=== PATIENT | female | born 1980 | race Caucasian/White ===

== ENCOUNTER 2016-08-24 08:30 | Outpatient (CLI) | END 2016-08-24 08:31 | disposition home or self-care (01) | LOC: LAB 08:30 | PROVIDERS: ATTEND Internal Medicine | DX: E03.9 Hypothyroidism, unspecified (principal); R53.83 Other fatigue; R73.9 Hyperglycemia, unspecified; R63.5 Abnormal weight gain | CPT/HCPCS: 36415; 83036; 84439; 84443; 86376 ==

== ENCOUNTER 2017-11-13 09:01 | Outpatient (CLI) ==
--- NOTE | 2017-11-13 11:19 | US ---
EXAM: Thyroid ultrasound HISTORY: Multinodular goiter. COMPARISON: Ultrasound 05/07/2016 TECHNIQUE: Sonographic evaluation of the thyroid was performed with limited doppler. FINDINGS: The right thyroid measures 4.6 x 1.5 x 1.6 cm. This is heterogeneous with normal color Doppler flow. There is a complex nodule in the superior pole measuring 0.7 x 0.7 x 0.4 cm. The the isthmus measures 0.3 cm in thickness. The left thyroid measures 3.9 x 1.1 x 1.3 cm. This is heterogeneous echogenicity with normal color D oppler flow. There is a nodule in the inferior left thyroid measuring 1.6 x 1.0 x 1.2 cm. There is no internal color Doppler flow. There is a superior pole 1.3 x 1.0 x 0.7 cm nodule with no internal color Doppler flow. The inferior thyroid nodule is mildly decreased in measured size. Of the upper left thyroid nodule is not previously identified. IMPRESSION: 1. Superior pole left thyroid nodule not seen on prior exam. Follow-up ultrasound and 6 months is r ecommended given history of multinodular goiter. 2. Interval decrease and size of inferior left thyroid nodule. The heterogeneous appearance of the thyroid is otherwise unchanged most consistent with multinodular goiter.
== END 2017-11-13 09:02 | disposition home or self-care (01) ==
LOC: RAD 09:01
PROVIDERS: ATTEND Internal Medicine Endocrinology, Diabetes & Metabolism
DX: E04.2 Nontoxic multinodular goiter (principal)